=== PATIENT | female | born 1960 | race Caucasian/White ===

== ENCOUNTER 2022-04-14 10:50 | Emergency (ER) | payer BC, SELFPAY ==
--- NOTE | ~2022-04-14 | XR_ITS ---
EXAMINATION: XR chest 1V INDICATION: Transient alteration of awareness, head injury TECHNIQUE: AP view of the chest is obtained. COMPARISON: None available FINDINGS: The lungs are free of acute opacities. No pleural effusion or pneumothorax. Calcified pulmo nary nodules are consistent with old granulomatous disease. The cardiomediastinal silhouette is lamont l. Surgical clips in the right upper quadrant are likely from prior cholecystectomy. IMPRESSION: 1. No acute cardiopulmonary abnormality. Reviewed, dictated and finalized at location A. DS CONTROL TECHNICIAN
--- NOTE | ~2022-04-14 | CT_ITS ---
EXAMINATION: CT brain wo con INDICATION: Head injury COMPARISON: None TECHNIQUE: Standard unenhanced head CT. The dose-length product (DLP) was 605.33 mGy-cm. The mA was a djusted according to patient size. Iterative reconstruction technique was employed. FINDINGS: There is no intracranial hemorrhage, acute infarction, or abnormal mass lesion. The ventric les are normal. There is no abnormal mass effect or midline shift. The rhoades-white matter differentiat ion is normal. The basal cisterns are patent. The orbits are normal. The paranasal sinuses, mastoids and calvarium are normal. IMPRESSION: 1. No acute intracranial abnormality. Reviewed, dictated and finalized at location A. 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
[2022-04-14 10:59] VITALS: BP 155/95; PULSE 78; RESP 18; TEMP 36.6; O2SAT 100
--- NOTE | 2022-04-14 11:02 | ECG_ITS ---
Measurements Intervals [place] Rate: 60 P: 66 CA: 138 QRS: 76 QRSD: 88 T: 73 QT: 373 QTc: 375 Interpretive Statements SINUS RHYTHM NO PREVIOUS ECG AVAILABLE FOR COMPARISON Electronically Signed On 04-14-2022 11:46:48 SOURCE INSPECTOR by Arthur Tariq M.D.
[2022-04-14 11:17] LABS: Basophils Percent Auto 0.3 % (0.2-1.2); Eosinophils Percent Auto 0.3 % (0-4.4); Hematocrit 47.6 % (37.0-47.0); Hemoglobin 15.9 g/dL (12.0-15.0); Immature Granulocyte Absolute 0.03 K/mm3 (0.00-0.031); Immature Granulocyte Percent A 0.4 % (0-0.5); Lymphocytes Absolute Auto 1.62 K/mm3 (0.9-3.2); Lymphocytes Percent Auto 22.9 % (18.3-44.2); Mean Corpuscular HGB Conc 33.4 g/dl (32-36); Mean Corpuscular Hemoglobin 30.3 pg (26-34); Mean Corpuscular Volume 90.7 fl (80-100); Mean Platelet Volume 9.4 fl (7.4-10.4); Monocytes Absolute Auto 0.5 K/mm3 (0.1-0.6); Monocytes Percent Auto 7.6 % (2.6-8.5); Neutrophils Absolute Auto 4.8 K/mm3 (1.3-6.7); Neutrophils Percent Auto 68.5 % (45.5-73.1); Platelet Count Result 232 k/mm3 (150-375); Red Blood Count 5.25 M/mm3 (4.2-5.4); Red Cell Distribution Width 13.6 % (11.5-14.5); White Blood Count 7.1 K/mm3 (4.5-10.0)
[2022-04-14 11:39] LABS: Alanine Aminotransferase 25 U/L (6-35); Albumin Level 4.3 g/dL (3.5-5.1); Alkaline Phosphatase 76 U/L (38-126); Anion Gap 6 mmol/L (8-16); Aspartate Amino Transferase 29 U/L (14-36); Bilirubin,Total 0.5 mg/dL (0.2-1.3); Blood Urea Nitrogen 14 mg/dL (7-17); Calcium 8.9 mg/dL (8.4-10.2); Carbon Dioxide 28 mmol/L (22-30); Chloride 101 mmol/L (98-107); Estimated Glomerular Filt Rate > 60; Glucose 101 mg/dL (65-110); Sodium 135 mmol/L (137-145)
[2022-04-14 11:40] VITALS: BP 146/68; PULSE 60
[2022-04-14 11:42] VITALS: BP 144/69; PULSE 65
[2022-04-14 11:43] VITALS: BP 144/77; PULSE 69
--- NOTE | 2022-04-14 11:59 | ED.SYNCOPE ---
HPI - Syncope General Chief Complaint: Syncope Stated Complaint: passed out last night Time Seen by Provider: 04/14/22 11:46 Source: patient and family Mode of arrival: ambulatory Limitations: no limitations History of Present Illness HPI narrative: 61 years old white female came from home by private car with her because of syncope last night. Patient was standing try to place a Band-Aid on her right thumb with a cat scratch. Patient is telling me that everything started fading out and landed on the floor. Her found her gagging while sitting on the floor. She denies any injury. Her reported that the symptoms lasted for about 1 to 2 minutes then patient back to normal. EMT arrived, patient declined to come to the emergency room. Patient woke up this morning doing okay, 2-hour prior to arrival to the emergency room started having lightheadedness, goodness and feeling like probably is going to blackout. On arrival to the emergency room the above symptoms resolved. Currently patient denying any fever, chills, nausea, vomiting, chest pain, shortness of breath, headache or any focal neurodeficit. Related Data Allergies Allergy/AdvReac Type Severity Reaction Status Date / Time No Known Allergies Allergy Verified 04/14/22 11:02 Review of Systems Review of Systems: All systems reviewed & are unremarkable except as noted in HPI and below Exam Narrative: General appearance: Well-developed, well-nourished Skin: Normal color Head: Normocephalic, nontraumatic Eyes: Clear conjunctiva ENT: Oropharynx normal, ears normal, nose normal Neck: Supple, nontender Chest and respiratory: Airway patent, no respiratory distress, no accessory muscle use Heart: Regular rate/rhythm Abdomen: Soft, nontender, no organomegaly, quiet bowel sounds Vascular: Normal peripheral pulses, normal capillary refill. 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 the benefits of continued treatment and/or hospitalization. And the alternatives. If any. to continued treatment and/or hospitalization. if applicable.I have not identified any psychosis, drugs, mental illness, or medical illness that alters decision-making capacity (reasoning abilities ). Date: 04/14/22 Time: 13:39 Vital Signs Vital signs: Vital Signs Temperature 36.6 C 04/14/22 10:59 Pulse Rate 78 04/14/22 10:59 Respiratory Rate 18 04/14/22 10:59 Blood Pressure 155/95 H 04/14/22 10:59 Pulse Oximetry 100 04/14/22 10:59 Oxygen Delivery Room Air 04/14/22 10:59 Temperature 36.6 C 04/14/22 10:59 Pulse Rate 69 04/14/22 11:43 Respiratory Rate 18 04/14/22 10:59 Blood Pressure 144/77 H 04/14/22 11:43 Pulse Oximetry 100 04/14/22 10:59 Oxygen Delivery Room Air 04/14/22 10:59 MDM - Syncope Differential Diagnosis Differential diagnosis: Likely syncope due to orthostatic hypotension, vasovagal syncope, complete atrioventricular block, dehydration and other (Cardiac arrhythmia) Lab Data 04/14/22 11:08 04/14/22 11:08 Labs: Lab Results 04/14/22 04/14/22 Range/Units 11:08 11:08 WBC 7.1 (4.5-10.0) K/mm3 RBC 5.25 (4.2-5.4) M/mm3 Hgb 15.9 H (12.0-15.0) g/dL Hct 47.6 H (37.0-47.0) % MCV 90.7 (80-100) fl MCH 30.3 (26-34) pg MCHC 33.4 (32-36) g/dl RDW 13.6 (11.5-14.5) % Plt Count 232 (150-375) k/mm3 MPV 9.4 (7.4-10.4) fl Immature
[2022-04-14 12:22] LABS: Magnesium 2.1 mg/dL (1.6-2.3)
[2022-04-14 12:22] LABS: Appearance Urine Clear (Clear); Bilirubin Urine Negative (Negative); Blood Urine Negative (Negative); Color Urine Yellow (Yellow); Glucose Urine UA Negative (Negative); Ketones Urine Negative (Negative); Leukocyte Esterase Ur Trace LEU/UL (Negative); Nitrate Urine Negative (Negative); Protein Urine Negative (Negative); Specific Grav Ur <= 1.005 (1.001-1.035); Urobilinogen Urine 0.2 mg/dL (<2.0)
[2022-04-14 12:31] LABS: Alveolar/Arterial O2 Gradient 31.9 mmHg; Base Excess ABG 1.2 mEq/l (+/-2.0); Fractional Inspired Oxygen 21 %; HCO3 ABG 25.7 mEq/l (22.0-26.0); Oxygen Content ABG 19.9 %vol (16.0-22.0); Oxygen Saturation ABG 94.4 % (95.0-100.0); Oxyhemoglobin 89.4 % THb (90.0-100.0); PCO2 ABG 40.2 mmHg (35.0-45.0); PO2 ABG 69.7 mmHg (80.0-100.0); PO2 FiO2 Ratio Arterial Blood 3.32 %; Total Hemoglobin 15.8 g/dL (12.0-18.0); pH ABG 7.423 (7.350-7.450)
[2022-04-14 12:32] LABS: Device ROOM AIR; Modified Allen's Test Pass; Site Drawn RIGHT RADIAL
[2022-04-14 12:33] LABS: INR 0.9; Partial Thromboplastin Time 29.5 SECONDS (22.3-36.8); Prothrombin Time 12.1 Seconds (11.1-14.7)
[2022-04-14 12:35] LABS: NT Pro B Type Natriuretic Pept 115 pg/mL (5-100); Troponin I < 0.012 ng/mL (0.000-0.034)
[2022-04-14 12:39] LABS: D Dimer 0.42 ug/mL (<0.48)
[2022-04-14 12:42] LABS: Add Urine Microscopic? YES; RBC Urine 0-2 /hpf (0-2); WBC Urine 0-3 /hpf
[2022-04-14 12:56] LABS: Influenza A QL RT-PCR Negative (Negative); Influenza B QL RT-PCR Negative (Negative); RSV RNA, RT-PCR Negative (Negative); SARS-CoV-2 RNA PCR Negative
[2022-04-14 13:18] VITALS: BP 132/62; PULSE 60; RESP 18; O2SAT 99
== END 2022-04-14 13:47 | disposition left against medical advice (07) ==
PROVIDERS: Emergency Provider Emergency Medicine; PCP Nurse Practitioner Family
DX: R55 Syncope and collapse (principal); Z20.822 Contact with and (suspected) exposure to COVID-19
CPT/HCPCS: 36415; 36600; 70450; 71045; 80053; 81001; 82805; 83735; 83880; 84484; 85025; 85380; 85610; 85730; 87637; 93005; 99284